=== PATIENT | male | born 1960 | race Caucasian/White ===

== ENCOUNTER 2024-12-05 04:56 | Emergency (ER) | payer BC, SELFPAY ==
--- NOTE | ~2024-12-05 | XR_ITS ---
EXAMINATION: XR CHEST CLINICAL INFORMATION: cough COMPARISON: None available. TECHNIQUE: 2 views of the chest were obtained. FINDINGS: Linear and patchy opacities, lower hemithoraces. No pleural effusion. No pneumothorax. Cardiomediastinal silhouette is normal in size. Multilevel thoracic spondylosis. XR/XR chest 2V IMPRESSION: Pulmonary edema versus multifocal pneumonia. Electronically signed by: Rajinder Hussein MD 12/05/2024 08:53 AM [facility]
--- NOTE | ~2024-12-05 | CT_ITS ---
EXAMINATION: CT ABDOMEN AND PELVIS WITH CONTRAST CLINICAL INFORMATION: Right lower quadrant abdominal pain. COMPARISON: None available. TECHNIQUE: Multidetector volumetric images were obtained from the superior aspect of the liver through the pubic symphysis following administration 85 mL of Omnipaque 350 intravenous contrast. Sagittal and coronal reformatted images were obtained on the technologist's workstation. Oral contrast: No This CT examination was performed using dose optimization techniques as appropriate, variously including the following: *Automated exposure control *Adjustment of mA and/or kV according to patient size (this includes techniques or standardized protocols for targeted exams where dose is matched to indication/reason for exam; i.e. extremities or head) *Use of iterative reconstruction technique. DLP: 1267 mGy centimeter. FINDINGS: LUNG BASES: Nonspecific pulmonary patchy groundglass, both lower lung lobes. LIVER, GALLBLADDER, AND BILIARY TREE: Liver measures 20 cm. No gross focal mass. No intrahepatic biliary ductal dilatation. No pericholecystic fluid collection or gallbladder wall thickening. Common bile duct measures 4 mm. PANCREAS: No focal mass. No main pancreatic ductal dilatation. No peripancreatic fluid collection. Reduced volume of the pancreatic parenchyma. SPLEEN: 8 cm. No focal mass. ADRENAL GLANDS: No nodular lesions. KIDNEYS AND URETERS: Right kidney: There is a 2.5 mm calcification at the right vesicoureteral junction/intraluminal right posterior bladder. There is moderate dilatation of the right urinary collecting system. There is perinephric edema pattern. There is slight decreased enhancement of the renal parenchyma. Left kidney: No hydronephrosis. No gross nephrolithiasis. 38 mm exophytic fluid density in the upper pole. BLADDER: 3 mm calcification in the posterior right lumen/vesicoureteral junction. GASTROINTESTINAL TRACT: Appendix is normal. Gas and fluid-filled mildly prominent small bowel loops. Numerous diverticula throughout the large intestine. Abundant stool. No intestinal obstruction pattern. No ascites. No pneumoperitoneum. No peripheral enhancing fluid collections, written L cavity. ABDOMINAL WALL: Fat-containing umbilical hernia. LYMPH NODES: Nonspecific mildly prominent mesenteric lymph nodes. VASCULAR: Calcified plaques in the coronary arteries, abdominal aorta and iliac arteries. No aneurysm or dissection, abdominal aorta. PELVIC VISCERA: No fully evaluated. OSSEOUS STRUCTURES: Multilevel thoracolumbar spondylosis. No acute fracture. Sclerosis and the sacroiliac joints. Bony island lesions in the femoral head, right side. CT/CT abdomen pelvis w IV con IMPRESSION: 3 mm obstructing calculus at the right vesicoureteral junction versus past within the lumen of the bladder resulting in moderate right hydroureteronephrosis. Questionable of multifocal pneumonia in the correct clinical settings. Diverticular disease. Fat-containing umbilical hernia. Fleischner guidelines were followed. Electronically signed by: Rajinder Hussein MD 12/05/2024 08:40 AM PAT
[2024-12-05 04:58] VITALS: BP 122/83; PULSE 62; RESP 18; TEMP 36.6; O2SAT 96; BMI 36.8
[2024-12-05 05:16] LABS: MANUAL DIFF FLAG NO
[2024-12-05 05:17] LABS: Basophils Percent Auto 0.3 % (0-2); Eosinophils Absolute Auto 0.2 X10*3/uL (0.0-0.4); Eosinophils Percent Auto 1.9 % (0-4); Hematocrit 40.9 % (42.0-52.0); Hemoglobin 14.3 g/dl (14.0-18.0); Imm Gran Abs Auto 0.04 X10*3/uL (0.00-0.03); Imm Gran Pct Auto 0.5 % (0.0-0.4); Lymphocytes Absolute Auto 1.6 X10*3/uL (1.2-4.9); Lymphocytes Percent Auto 20.3 % (20-40); Mean Corpuscular Hemoglobin 30.2 pg (27.0-33.0); Mean Corpuscular Volume 86.5 fL (80.0-98.0); Mean Platelet Volume 9.2 fL (9.4-12.4); Monocytes Absolute Auto 0.9 X10*3/uL (0.1-1.2); Monocytes Percent Auto 10.9 % (2-11); Neutrophils Absolute Auto 5.2 x10*3/uL (2.0-8.3); Neutrophils Percent Auto 66.1 % (45-73); Platelet Count 260 X10*3/uL (160-400); Red Blood Count 4.73 X10*6/uL (4.60-5.80); Red Cell Distribution Width 12.9 % (11.0-16.0); White Blood Count 7.8 X10*3/uL (4.8-10.8)
[2024-12-05 05:32] LABS: Alanine Aminotransferase 20 U/L (0-40); Albumin Level 3.9 g/dL (3.5-5.0); Alkaline Phosphatase 66 U/L (39-117); Anion Gap 15 (12-20); Aspartate Amino Transferase 34 U/L (5-37); Bilirubin Direct 0.2 mg/dL (0.0-0.5); Bilirubin Total 0.7 mg/dL (0.0-1.0); Blood Urea Nitrogen 19 mg/dL (9-16); Calcium 8.8 mg/dL (8.4-10.2); Carbon Dioxide 21 mmol/L (22-29); Chloride 107 mmol/L (96-108); Creatinine Clr Calc Pharmacy 85.6; Estimated Glomerular Filt Rate > 60; Glucose Random 147 mg/dL (60-115); Lipase 18 U/L (8-78); Magnesium 1.9 mg/dL (1.6-2.6); Sodium 139 mmol/L (135-145); Total Protein 7.6 g/dL (6.5-8.0)
[2024-12-05 05:53] LABS: Influenza A PCR NEGATIVE (Negative); Influenza B PCR NEGATIVE (Negative); Resp Syncy Virus RNA Qual PCR NEGATIVE (Negative); SARS COV2 PCR INHOUSE NEGATIVE (Negative)
--- NOTE | 2024-12-05 07:10 | ED_ITS ---
HPI - General Adult General Chief complaint: Abdominal Pain Stated complaint: Cough, lower right abdominal pain Time Seen by Provider: 12/05/24 07:10 Source: patient Mode of arrival: ambulatory Limitations: no limitations History of Present Illness ED Provider: Meghan Gallagher PA-C HPI narrative: Patient is a 64 year old assigned male at with no reported medical history presenting to the emergency department today with a cough and right lower quadrant abdominal pain. Patient states that over the last 1-2 weeks he has had intermittent right lower quadrant pain. Patient states that over the last day - the pain has become much worse and more constant. Patient states that he has also been having a nonproductive cough with some subject fever and chills. Patient denies any dizziness, lightheadedness, nausea, vomiting, blurry vision, double vision, loss of vision, chest pain, difficulty breathing, shortness of breath, back pain, night sweats, pain with urination, increased urinary frequency, increased urinary urgency, blood in his urine or stool, syncope or a near syncopal episode, recent trauma or falls, bowel incontinence, bladder incontinence, or any other complaints at this time. Relieving factors: none Exacerbating factors: none Associated symptoms: cough and fever/chills Treatments prior to arrival: none Related Data Previous Rx's ?Medication ?Instructions ?Recorded azithromycin 250 mg tablet See Rx Instructions PO .COMPLEX #6 12/05/24 tabs cephalexin 500 mg capsule 500 mg PO Q6H 7 days #28 caps 12/05/24 prednisone 20 mg tablet 20 mg PO DAILY 7 days #7 tabs 12/05/24 tamsulosin 0.4 mg capsule 0.4 mg PO DAILY #7 caps 12/05/24 Allergies Allergy/AdvReac Type Severity Reaction Status Date / Time No Known Allergies Allergy Verified 12/05/24 05:04 Review of Systems 2 Constitutional: Constitutional: Reports no additional constitutional complaints, Reports chills, Reports fever(s) and Denies night sweats Eyes: Eyes: Reports no additional eye complaints, Denies blurry vision, Denies change in vision, Denies diplopia, Denies eye discharge, Denies loss of vision and Denies eye pain ENT: Denies dizziness Cardiovascular: Cardiovascular: Reports no additional cardiovascular complaints, Denies chest pain, Denies lightheadedness, Denies Loss of Consciousness and Denies dyspnea Respiratory: Respiratory: Reports no additional respiratory complaints, Reports cough and Denies dyspnea Gastrointestinal: Gastrointestinal: Reports no additional gastrointestinal complaints, Reports abdominal pain, Denies melena, Denies hematochezia, Denies change in bowel habits, Denies change in stool character, Denies nausea and Denies vomiting Genitourinary: Genitourinary: Reports no additional male genitourinary complaints, Denies hematuria, Denies oliguria, Denies difficulty urinating, Denies dysuria, Denies urinary frequency, Denies urinary hesitancy, Denies urinary incontinence and Denies urinary urgency Musculoskeletal: Musculoskeletal: Reports no additional musculoskeletal complaints, Denies numbness and Denies tingling Neurologic: Denies dizziness, Denies loss of vision, Denies numbness and Denies tingling Psychiatric: Psychiatric: Reports no additional psychiatric complaints Endocrine: Endocrine: Reports no additional endocrine complaints Hematologic/Lymphatic: Hematologic/Lymphatic: Reports no additional hematologic/lymphatic complaints Allergic/Immunologic: Allergic/Immunologic: Reports no additional allergic/immunologic complaints PMFSH Past Medical History Attestation statement: The following information was validated with the patient. Source: old records reviewed and nursing notes reviewed Physical Exam ED Vital Signs: Vital Signs - 24 hr 12/05/24 04:58 12/05/24 09:34 12/05/24 10:00 Temperature 97.9 F 97.6 F Pulse Rate 62 72 78 Respiratory Rate 18 18 18 Blood Pressure 122/83 137/71 Pulse Oximetry 96 90 L 93 Oxygen Delivery Method Room Air Room Air Room Air 12/05/24 11:58 12/05/24 12:26 Temperature 98.2 F 98.2 F Pulse Rate 73 73 Respiratory Rate 18 18 Blood Pressure 146/84 H 146/84 H Pulse Oximetry 96 96 Oxygen Delivery Method Room Air Room Air BMI result Body Mass Index 36.8 Const General: cooperative, no acute distress, alert and awake Nutritional Appearance: well nourished Orientation/consciousness: patient oriented x3 Limitations: no limitations HENMT Head: Yes normal to inspection and Yes atraumatic Ears: hearing grossly normal bilaterally and external ears normal General nose exam: Normal external nose present, no nasal discharge noted and no epistaxis Face and sinus: Yes normal facial exam, No abrasion and No laceration Mouth: Normal oral and palatal mucosa present, no drooling and no muffled voice Eyes General: appearance normal, both eyes and all related structures Periorbital: periorbital findings normal Eyelids: Yes eyelids normal Conjunctivae: conjunctivae normal Pupils: Equal, round and reactive pupils present EOM: EOMs intact bilaterally Neck Neck: Yes normal visual inspection, Yes full ROM and Yes no lymphadenopathy Chest Chest palpation & inspection: normal inspection of the chest Resp Effort & Inspection: normal respiratory effort and able to speak in complete sentences GI Inspection: Yes normal to inspection Palpation (GI): Soft to palpation, not firm, nontender, no guarding and not rigid Neuro General: patient oriented x3 and moves all extremities Cranial nerves: Yes Equal, round and reactive pupils present Cognition (Neuro): normal cognition Extrem General: Yes normal to inspection, Yes full ROM and Yes capillary refill normal Psych Appearance: grossly normal Mental Status: mental status grossly normal Affect: normal affect Attitude: cooperative Thought process: Normal thought process present Thought content: Normal thought content present Insight: Good insight present (Psych) Medications Administered Discontinued Medications Generic Name Dose Route Start Last Admin Trade Name Freq PRN Reason Stop Dose Admin Ceftriaxone Sodium 1 gm 12/05/24 08:52 12/05/24 09:31 Ceftriaxone Sodium 1 Gm Vial IVPUSH 12/05/24 08:53 1 gm ONCE ONE Administration Hydromorphone HCl 1 mg 12/05/24 08:41 12/05/24 08:54 Hydromorphone Hcl 1 Mg/Ml Syringe IVPUSH 12/05/24 08:42 1 mg ONCE ONE Administration Protocol Sodium Chloride 1,000 mls @ 999 mls/hr 12/05/24 08:45 12/05/24 11:54 Ns IV 12/05/24 09:45 Infused .Q1H1M CARLI Infusion Azithromycin 500 mg/ Sodium 250 mls @ 125 mls/hr 12/05/24 09:26 12/05/24 11:53 Chloride IV 12/05/24 11:25 Infused ONCE ONE Infusion Iohexol 100 ml 12/05/24 08:12 12/05/24 08:12 Iohexol 350 Mg/Ml 100 Ml Infus..Btl IV 12/05/24 08:13 85 ml ONCE ONE Administration Ketorolac Tromethamine 15 mg 12/05/24 08:43 12/05/24 08:54 Ketorolac Tromethamine 15 Mg/Ml Vial IVPUSH 12/05/24 08:44 15 mg ONCE ONE Administration Methylprednisolone Sodium Succinate 60 mg 12/05/24 08:43 12/05/24 08:54 Methylprednisolone Sod Succ 125 Mg/2 Ml Vial IVPUSH 12/05/24 08:44 60 mg ONCE ONE Administration Morphine Sulfate 4 mg 12/05/24 07:21 12/05/24 07:53 Morphine Sulfate 4 Mg/Ml Cartridge IVPUSH 12/05/24 07:22 4 mg ONCE ONE Administration Protocol Ondansetron HCl 4 mg 12/05/24 07:21 12/05/24 07:53 Ondansetron Hcl 4 Mg/2 Ml Vial IVPUSH 12/05/24 07:22 4 mg ONCE ONE Administration Ondansetron HCl 4 mg 12/05/24 08:57 12/05/24 09:31 Ondansetron Hcl 4 Mg/2 Ml Vial IVPUSH 12/05/24 08:58 4 mg ONCE ONE Administration Medical Decision Making Medical Decision Making [facility] Narrative: Patient is a 64 year old assigned male at with no reported medical history presenting to the emergency department today with a cough and right lower quadrant abdominal pain. Patient's physical exam was as noted in the physical exam portion of this note. Patient's blood work was unremarkable. Patient's EKG was unremarkable. Patient's chest x-ray showed multifocal pneumonia. Patient's CT abd/pelvis showed a 3 mm obstructing strone at the right vesicoureteral junction vs. just past within the lumen of the bladder causing moderate right hydroureternephrosis as well as multifocal pneumonia. I explained my physical exam findings as well as all test results to the patient. I answered all questions asked by the patient. Patient received IV fluids, Azithromycin, Ceftriaxone, dilaudid, toradol, zofran, and morphine which, upon re-evaluation, he stated it helped his pain significantly. Given the size of the patient's stone - will discharge him with home medications to attempt to pass it. I stressed the importance of the patient taking his medication as directed (either prescribed or as the over the counter packaging recommends). I stressed the importance of the patient following up with his primary care provider and a urologist. I stressed the importance of the patient returning to the emergency department immediately if his symptoms were to worsen or if he were to develop any dizziness, shortness of breath, difficulty breathing, chest pain, blurry vision, loss of vision, nausea, vomiting, abdominal pain, fever, chills, back pain, or any other complaints. Patient verbalized agreement and understanding with this treatment plan and discharge. Differential Diagnosis Differential Diagnoses: The differential diagnosis associated with the presentation includes Multifocal pneumonia Kidney stone Admission/Observation Consideration of admission/observation: Escalation of care including admission/observation considered Patient would have been admitted to the hospital had his work up had any findings where hospital admission was appropriate and his clinical presentation warranted hospital admission. Lab Data [facility] Lab Attestation statement: I reviewed the patient's lab results. My interpretation of these results are in the [facility] Rationale portion of this note. 12/05/24 05:10 12/05/24 05:10 Labs: Lab Results 12/05/24 Range/Units 05:10 WBC 7.8 (4.8-10.8) X10*3/uL RBC 4.73 (4.60-5.80) X10*6/uL Hgb 14.3 (14.0-18.0) g/dl Hct 40.9 L (42.0-52.0) % MCV 86.5 (80.0-98.0) fL MCH 30.2 (27.0-33.0) pg MCHC 35.0 (31.0-36.0) g/dl RDW 12.9 (11.0-16.0) % Plt Count 260 (160-400) X10*3/uL MPV 9.2 L (9.4-12.4) fL Immature Gran % (Auto) 0.5 H (0.0-0.4) % Neut % (Auto) 66.1 (45-73) % Lymph % (Auto) 20.3 (20-40) % Kingfisher % (Auto) 10.9 (2-11) % Eos % (Auto) 1.9 (0-4) % Baso % (Auto) 0.3 (0-2) % Lymph # (Auto) 1.6 (1.2-4.9) X10*3/uL Kingfisher # (Auto) 0.9 (0.1-1.2) X10*3/uL Eos # (Auto) 0.2 (0.0-0.4) X10*3/uL Baso # (Auto) 0.0 (0.0-0.2) X10*3/uL Abs Immat Gran (auto) 0.04 H (0.00-0.03) X10*3/uL Absolute Neuts (auto) 5.2 (2.0-8.3) x10*3/uL Absolute Nucleated RBC 0.000 (0.0-0.012) X10*3/uL Nucleated RBC % (auto) 0.0 (0.0-0.2) /100WBC Sodium 139 (135-145) mmol/L Potassium 4.0 (3.3-5.1) mmol/L Chloride 107 (96-108) mmol/L Carbon Dioxide 21 L (22-29) mmol/L Anion Gap 15 (12-20) BUN 19 H (9-16) mg/dL Creatinine 1.18 (0.5-1.4) mg/dL Estim Creat Clear Calc 85.6 Estimated GFR > 60 Random Glucose 147 H (60-115) mg/dL Calcium 8.8 (8.4-10.2) mg/dL Magnesium 1.9 (1.6-2.6) mg/dL Total Bilirubin 0.7 (0.0-1.0) mg/dL Direct Bilirubin 0.2 (0.0-0.5) mg/dL AST 34 (5-37) U/L ALT 20 (0-40) U/L Alkaline Phosphatase 66 (39-117) U/L Total Protein 7.6 (6.5-8.0) g/dL Albumin 3.9 (3.5-5.0) g/dL Lipase 18 (8-78) U/L Influenza Type A (PCR) NEGATIVE (Negative) Influenza Type B (PCR) NEGATIVE (Negative) RSV RNA Qual (PCR) NEGATIVE (Negative) SARS-CoV-2 RNA (RT-PCR) NEGATIVE (Negative) Independent Interpretation I performed an independent interpretation of an: Plain X-Ray and CT Scan Interpretation: My interpretation is in agreement with the radiologist's impression of these imaging studies. L EXAMINATION: XR CHEST CLINICAL INFORMATION: cough COMPARISON: None available. TECHNIQUE: 2 views of the chest were obtained. FINDINGS: Linear and patchy opacities, lower hemithoraces. No pleural effusion. No pneumothorax. Cardiomediastinal silhouette is normal in size. Multilevel thoracic spondylosis. XR/XR chest 2V IMPRESSION: Pulmonary edema versus multifocal pneumonia. Electronically signed by: Rajinder Hussein MD 12/05/2024 08:53 AM EST Dictated By: Rajinder Christianson MD Signed By: Electronically signed by Rajinder Norwood MD 12/05/24 0853 Report Number: [id number]: Total DLP = 1287.00 mGy-cm EXAMINATION: CT ABDOMEN AND PELVIS WITH CONTRAST CLINICAL INFORMATION: Right lower quadrant abdominal pain. COMPARISON: None available. TECHNIQUE: Multidetector volumetric images were obtained from the superior aspect of the liver through the pubic symphysis following administration 85 mL of Omnipaque 350 intravenous contrast. Sagittal and coronal reformatted images were obtained on the technologist's workstation. Oral contrast: No This CT examination was performed using dose optimization techniques as appropriate, variously including the following: *Automated exposure control *Adjustment of mA and/or kV according to patient size (this includes techniques or standardized protocols for targeted exams where dose is matched to indication/reason for exam; i.e. extremities or head) *Use of iterative reconstruction technique. DLP: 1267 mGy centimeter. FINDINGS: LUNG BASES: Nonspecific pulmonary patchy groundglass, both lower lung lobes. LIVER, GALLBLADDER, AND BILIARY TREE: Liver measures 20 cm. No gross focal mass. No intrahepatic biliary ductal dilatation. No pericholecystic fluid collection or gallbladder wall thickening. Common bile duct measures 4 mm. PANCREAS: No focal mass. No main pancreatic ductal dilatation. No peripancreatic fluid collection. Reduced volume of the pancreatic parenchyma. SPLEEN: 8 cm. No focal mass. ADRENAL GLANDS: No nodular lesions. KIDNEYS AND URETERS: Right kidney: There is a 2.5 mm calcification at the right vesicoureteral junction/intraluminal right posterior bladder. There is moderate dilatation of the right urinary collecting system. There is perinephric edema pattern. There is slight decreased enhancement of the renal parenchyma. Left kidney: No hydronephrosis. No gross nephrolithiasis. 38 mm exophytic fluid density in the upper pole. BLADDER: 3 mm calcification in the posterior right lumen/vesicoureteral junction. GASTROINTESTINAL TRACT: Appendix is normal. Gas and fluid-filled mildly prominent small bowel loops. Numerous diverticula throughout the large intestine. Abundant stool. No intestinal obstruction pattern. No ascites. No pneumoperitoneum. No peripheral enhancing fluid collections, written L cavity. ABDOMINAL WALL: Fat-containing umbilical hernia. LYMPH NODES: Nonspecific mildly prominent mesenteric lymph nodes. VASCULAR: Calcified plaques in the coronary arteries, abdominal aorta and iliac arteries. No aneurysm or dissection, abdominal aorta. PELVIC VISCERA: No fully evaluated. OSSEOUS STRUCTURES: Multilevel thoracolumbar spondylosis. No acute fracture. Sclerosis and the sacroiliac joints. Bony island lesions in the femoral head, right side. CT/CT abdomen pelvis w IV con IMPRESSION: 3 mm obstructing calculus at the right vesicoureteral junction versus past within the lumen of the bladder resulting in moderate right hydroureteronephrosis. Questionable of multifocal pneumonia in the correct clinical settings. Diverticular disease. Fat-containing umbilical hernia. Fleischner guidelines were followed. Electronically signed by: Rajinder Hussein MD 12/05/2024 08:40 AM EST Dictated By: Rajinder Christianson MD Signed By: Electronically signed by Rajinder Norwood MD 12/05/24 0840 I independently interpreted this EKG and am in agreement with the below findings: Vent. Rate: 72 BPM Atrial Rate: 72 BPM P-R Int: 176 ms QRS Dur: 88 ms QT Int: 416 ms P-R-T Axes: 6 10 28 degrees QTcB Int: 455 ms Normal sinus rhythm Inferior infarct, age undetermined No previous ECGs available Referred By: Meghan Gallagher Electronically Signed By: Max Thompson Dictated By: Max Thompson MD Signed By: Electronically signed by Max Thompson MD 12/05/24 3059 Radiology Impression Discussion of test interpretation with radiology: I have reviewed the radiologist's reading. Prescription Management I considered prescription management with: Antibiotic (patient prescribed antibiotics for multifocal pneumonia) Critical Care Time Critical Care Time Critical Care Time: Yes Total Critical Care Time: 46 Attestation: I spent 46 minutes of Critical Care Time with this patient. This does not include time spent on separately reported billable procedures. Discharge Plan Discharge Clinical Impression: Pneumonia, Kidney stone Patient Disposition: Home, Self-Care Instructions: Kidney Stones (ED), Pneumonia (ED) Additional Instructions: Take your medication as prescribed. Follow up with a urologist about your kidney stone. Follow up with your primary care provider. Return to the emergency department immediately if your symptoms worsen or if you develop any dizziness, shortness of breath, difficulty breathing, chest pain, blurry vision, loss of vision, nausea, vomiting, abdominal pain, fever, chills, back pain, or any other complaints. Prescriptions: New azithromycin 250 mg tablet See Rx Instructions .ROUTE .COMPLEX Qty: 6 0RF Rx Instructions: For 250 mg dose pack: take 500 mg today (day 1), then 250 mg for 4 days (days 2-5) prednisone 20 mg tablet 20 mg PO DAILY 7 Days Qty: 7 0RF cephalexin 500 mg capsule 500 mg PO Q6H 7 Days Qty: 28 0RF tamsulosin 0.4 mg capsule 0.4 mg PO DAILY Qty: 7 0RF Referrals: [facility] [Provider Group] (Call to establish and follow up with a urologist to discuss your kidney stone.) Anabell Trivedi DO [Primary Care Provider] - Stand Alone Forms: Work/School Release Interventions: ED Discharge Assessment Last Done: 12/05/24 12:26 Discharge Date/Time: 12/05/24 12:29 Print Language: Estonian
[2024-12-05] MEDS: ondansetron HCL 4 MG/2 ML VIAL IVPUSH ×2 (07:53→09:31)
[2024-12-05] MEDS: Morphine Sulfate 4 MG/ML CARTRIDGE IVPUSH (07:53)
[2024-12-05] MEDS: iohexoL 350 MG/ML 100 ML INFUS..BTL IV (08:12)
[2024-12-05] MEDS: Ketorolac Tromethamine 15 MG/ML VIAL IVPUSH (08:54)
[2024-12-05] MEDS: methylPREDNISolone Sod Succ 125 MG/2 ML VIAL 60 MG IVPUSH (08:54)
[2024-12-05] MEDS: HYDROmorphone HCl 1 MG/ML SYRINGE IVPUSH (08:54)
--- NOTE | 2024-12-05 08:57 | ECG_ITS ---
Test Reason : PAIN Blood Pressure : */* mmHG Vent. Rate : 72 BPM Atrial Rate : 72 BPM P-R Int : 176 ms QRS Dur : 88 ms QT Int : 416 ms P-R-T Axes : 6 10 28 degrees QTcB Int : 455 ms Normal sinus rhythm Inferior infarct , age undetermined Abnormal ECG No previous ECGs available Referred By: Meghan Gallagher Electronically Signed By: Max Thompson
[2024-12-05] MEDS: 0.9 % Sodium Chloride 1,000 ML 999 ML IV (08:59)
[2024-12-05] MEDS: cefTRIAXone sodium 1 GM VIAL IVPUSH (09:31)
[2024-12-05 09:34] VITALS: BP 137/71; PULSE 72; RESP 18; TEMP 36.4; O2SAT 90
[2024-12-05] MEDS: Azithromycin 500 MG in 0.9 % Sodium Chloride 250 ML 125 MG IV (09:44)
[2024-12-05 10:00] VITALS: PULSE 78; RESP 18; O2SAT 93
[2024-12-05 11:58] VITALS: BP 146/84; PULSE 73; RESP 18; TEMP 36.8; O2SAT 96
[2024-12-05 12:26] VITALS: BP 146/84; PULSE 73; RESP 18; TEMP 36.8; O2SAT 96
== END 2024-12-05 12:29 | disposition home or self-care (01) ==
PROVIDERS: Emergency Provider Emergency Medicine; PCP Family Medicine
DX: J18.9 Pneumonia, unspecified organism (principal); N20.0 Calculus of kidney; R05.9 Cough, unspecified; R10.2 Pelvic and perineal pain; R11.2 Nausea with vomiting, unspecified; R10.31 Right lower quadrant pain; R50.9 Fever, unspecified; R07.89 Other chest pain; Z03.818 Encounter for observation for suspected exposure to other biological agents ruled out; Z79.899 Other long term (current) drug therapy
CPT/HCPCS: 0241U; 71046; 74177; 80053; 82248; 83690; 83735; 85025; 93005; 96361; 96374; 96375; 96376; 99284; J0456; J0696; J1171; J1885; J2270; J2405; J2919; Q9967

== ENCOUNTER → 2024-12-05 07:21 | Outpatient (BNV) | payer BC, SELFPAY | PROVIDERS: Emergency Provider Emergency Medicine; PCP Family Medicine; Visit Provider Radiology Diagnostic Radiology | DX: R10.31 Right lower quadrant pain (principal); R05.9 Cough, unspecified | CPT/HCPCS: 71046; 74177 ==

== ENCOUNTER → 2024-12-05 08:57 | Outpatient (BNV) | payer BC, SELFPAY | PROVIDERS: Emergency Provider Emergency Medicine; PCP Family Medicine; Visit Provider Internal Medicine Cardiovascular Disease | DX: R94.31 Abnormal electrocardiogram [ECG] [EKG] (principal); R52 Pain, unspecified | CPT/HCPCS: 93010 ==